=== PATIENT | male | born 1980 | race African-American/Black ===

== ENCOUNTER 2017-12-06 13:02 | Emergency (ER) | payer MEDICAID ==
[~2017-12-06 13:02] MED LIST: PHEN100C4
== END 2017-12-06 13:10 | disposition left against medical advice (07) ==
LOC: SED 13:02
DX: R56.9 Unspecified convulsions (principal)
CPT/HCPCS: 99283

== ENCOUNTER 2019-06-26 19:21 | Emergency (ER) | payer MEDICAID ==
[~2019-06-26] VITALS: Ht 172.7 cm; Wt 86.2 kg
[2019-06-26 19:26] VITALS: BP_SYST 146
--- NOTE | 2019-06-26 19:29 | NUR ---
Patient triaged and placed on ems gurney. VSS and patient appears in no acute distress at this time. Accompanied by ems , awaiting available bed, and MD notified of need for MSE.
--- NOTE | 2019-06-26 19:45 | NUR ---
Pt BIBA to ED post seizure. Pt AAO, states he was on the way to have dinner with friends and had a seizure. Pt reports Hx of seizures, which he takes depakote and keppra for. Pt states his last dose was this morning. Pt states no other Hx. No KO, no N/V noted, no SOB, chills noted. Will continue to monitor.
--- NOTE | 2019-06-26 20:01 | NUR ---
Dr. Wolff at bedside examining Pt.
--- NOTE | 2019-06-26 20:55 | NUR ---
Patient given written and verbal discharge instructions and verbalizes understanding. ER MD discussed with patient the results and treatment provided. Patient in stable condition. ID arm band removed. Patient educated on pain management and to follow up with PMD. Pain Scale 0/10. Opportunity for questions provided and answered. Medication side effect fact sheet provided.
[2019-06-27 04:40] VITALS: BP_SYST 124
== END 2019-06-27 04:40 | disposition home or self-care (01) ==
LOC: SED 19:21
DX: R56.9 Unspecified convulsions (principal)
CPT/HCPCS: 99283

== ENCOUNTER 2020-08-31 20:10 | Emergency (ER) | payer MEDICAID ==
[~2020-08-31] VITALS: Ht 167.6 cm; Wt 56.2 kg
--- NOTE | 2020-08-31 20:10 | NUR ---
Patient to ER bed 1 to gown for evaluation. Side rails up. Report RECEIVED FROM TIARRA RUANO
--- NOTE | 2020-08-31 20:10 | NUR ---
Seizure precautions in place. Seizure pads applied to gurney. Side rails up.
[2020-08-31] MEDS ORDERED: LORazepam 1 MG TABLET PO ONE (20:15)
[2020-08-31] MEDS ORDERED: levETIRAcetam 500 MG TABLET PO ONE (20:15)
--- NOTE | 2020-08-31 20:15 | NUR ---
ER Dr. JOHNSON at bedside examining patient.
[2020-08-31 20:21] VITALS: BP_SYST 108
--- NOTE | 2020-08-31 20:35 | NUR ---
PT A&O X3 BIB ALS C/O SEIZURE IN [place] AT [facility]. PT WAS SEEN AT [facility] TODAY FOR SEIZURES. PT REPORTS BEING COMPLIANT WITH MEDICATION, KEPPRA DAILY. PT ABLE TO SPEAK IN COMPLETE SENTENCES. WILL CONTINUE TO MONITOR.
--- NOTE | 2020-08-31 20:42 | NUR ---
Blood for labwork drawn from [facility]. Patient tolerated WELL.
[2020-08-31 20:58] LABS: BASOPHILS % (AUTO) 0.4 % (0.0-2.0); EOSINOPHILS % (AUTO) 0.8 % (0.0-4.0); HEMATOCRIT 43.1 % (36-54); HEMOGLOBIN 14.6 g/dL (14.0-18.0); LYMPHOCYTES # (AUTO) 1.6 K/uL (1.0-5.5); LYMPHOCYTES % (AUTO) 30.1 % (20.5-51.5); MEAN CORPUSCULAR HEMOGLOBIN 35 pg (27-31); MEAN CORPUSCULAR HGB CONC 34 % (32-36); MEAN CORPUSCULAR VOLUME 102 fL (79.0-98.0); MONOCYTES # (AUTO) 0.4 K/uL (0.0-1.0); MONOCYTES % (AUTO) 8.3 % (1.7-9.3); NEUTROPHILS # (AUTO) 3.2 K/uL (1.8-7.7); NEUTROPHILS % (AUTO) 60.4 % (40.0-70.0); PLATELET COUNT (AUTO) 169 K/uL (130-430); RED BLOOD CELL COUNT(AUTO) 4.21 MIL/uL (4.2-6.2); RED CELL DISTRIBUTION WIDTH 13.7 % (9.0-15.0); WHITE BLOOD COUNT (AUTO) 5.2 K/uL (4.8-10.8)
--- NOTE | 2020-08-31 21:03 | NUR ---
PT IS INPATIENT, DEMANDING TO USE TELEPHONE, STATES "SHE DOESN'T NEED TO HOP UP SO FAST TO COME TO MY ROOM JUST BECAUSE I'M DARK" TO RN. PT EDUCATED ON IMPORTANCE OF LAYING IN BED IN CASE OF A SECOND SEIZURE HAPPENS. PT REFUSES TO COOPERATE WITH LAYING IN BED, AND KEEPING SHEAR OPERATOR ON.
--- NOTE | 2020-08-31 21:14 | NUR ---
Chad (friend) [phone] CALLED AND VOICEMAIL LEFT PER PATIENT REQUEST.
[2020-08-31 21:17] LABS: POTASSIUM 3.6 mmol/L (3.5-5.1)
[2020-08-31 21:18] LABS: CALCIUM 8.9 mg/dL (8.4-11.0); CREATININE 1.16 mg/dL (0.55-1.30)
[2020-08-31] MEDS ORDERED: LORA-259 PO (21:22)
--- NOTE | 2020-08-31 21:24 | NUR ---
BAR MACHINE OPERATOR PRODUCTION IS ATTEMPTING TO SET UP [facility] TRANSPORT FOR PATIENT TO [facility] IN [place] ON [address]
[2020-08-31 21:30] LABS: TOTAL BILIRUBIN 0.3 mg/dL (0.0-1.0)
[2020-08-31 21:31] LABS: ALBUMIN 3.7 g/dL (3.4-4.8)
--- NOTE | 2020-08-31 21:39 | NUR ---
ETA FOR TAXI IS 2230 PER BORING MACHINE OPERATOR VERTICAL. PT INFORMED. PT RESTING IN [facility]. NO SIGNS OF ACUTE DISTRESS.
--- NOTE | 2020-08-31 22:03 | NUR ---
ORALIA ARRIVED AND WAITING OUTSIDE.
[2020-08-31 22:07] VITALS: BP_SYST 129
--- NOTE | 2020-08-31 22:07 | NUR ---
Patient given written and verbal discharge instructions and verbalizes understanding. PATIENT DISCHARGED TO [facility] TO DRIVE PATIENT TO [facility]. ER MD discussed with patient the results and treatment provided. Patient in stable condition. ID arm band removed. NO IV. Rx of ATIVAN given. Patient educated on pain management and to follow up with PMD. Pain Scale 0/10. Opportunity for questions provided and answered. Medication side effect fact sheet provided.
--- NOTE | 2020-08-31 22:07 | NUR ---
Note undone in EDM - 08/31/20 at 2213 by YOAN Patient given written and verbal discharge instructions and verbalizes understanding. ER discussed with patient the results and treatment provided. Patient in stable condition. ID arm band removed. NO IV Rx of ATIVAN given. Patient educated on pain management and to follow up with PMD. Pain Scale 0/10. Opportunity for questions provided and answered. Medication side effect fact sheet provided.
== END 2020-08-31 22:07 | disposition home or self-care (01) ==
LOC: SED 20:10
DX: R56.9 Unspecified convulsions (principal)
CPT/HCPCS: 36415; 80053; 85025; 99283